=== PATIENT | male | born 1985 | race Caucasian/White ===

== ENCOUNTER → 2019-01-09 | Outpatient (CLI) | payer BC ==
[~2019-01-09] MED LIST: ACET325T9 PO; CITA10TA4 PO; CYCL10TA2 PO; FLUT16SP NS; GABA600T7 PO; IBUP-1027 PO; IOHEXOL 180 MG/ML 10 ML VIAL. ONE; LISI1TAB5 PO; MONT10TA9 PO; NORT50CA PO; RANI150C PO; ROPI0.5T PO; methylPREDNISolone ACETATE 40 MG/ML VIAL. ONE; methylPREDNISolone ACETATE 80 MG/ML VIAL. ONE
--- NOTE | 2019-01-10 03:36 | PAIN ---
DATE OF SERVICE: 01/09/2019 INITIAL CONSULTATION FOR PAIN CLINIC CHIEF COMPLAINT: Neck and right upper extremity pain. HISTORY OF PRESENT ILLNESS: This is a 33-year-old male who presents with history of pain in the neck and right upper extremity and shoulder for about 6 weeks, since about 11/26/2018. The patient reports it is in the base of the neck and shoulder, not a result of any specific injury or action that he is aware of. It just comes up over time, getting worse with repetitive motions, any lifting or motion of the right upper extremity, as becoming significant weakness with fine motor movements as well as lifting items, reaching above his head on his right side. Also looking over his right shoulder with his neck and extension of the cervical spine exacerbates the pain fairly significantly as well. The patient reports again no injury or action he is aware of. No pain on the left side. The patient reports pain is constant, sharp, stabbing, throbbing, changes during the day, radiating, worse with activity and cramping sensation as well. It awakens him from sleep at least 3-4 times a night. It does not affect his bowel or bladder control or his ability to walk. He has had chiropractic treatment within the last few weeks, which has been helpful, but only moderately, so not decreasing the pain significantly over time. The patient reports no loss of motor function, but significant fatigability of the right arm over the past 6 weeks or so. The patient did have an MRI scan of the cervical spine showing at C6-C7 circumferential disk bulge with a right paracentral disk herniation and extrusion, resulting in flattening of the ventral cord, with severe right lateral recess stenosis and impingement of the C7 nerve root, with [id number] right neural foraminal narrowing and mild left neural foraminal narrowing. The patient rates his disability from 0-10, 10 being the worst. It is a 7 with family and home responsibilities, recreation, social activity and self-care; 10 with occupation; 8 with sexual behavior and 9 with life-support activities. PAST MEDICAL HISTORY: The patient's past medical history is significant for hypertension and sleep apnea, also arthritis. PAST SURGICAL HISTORY: No previous surgeries. CURRENT MEDICATIONS: Include gabapentin, Tylenol, ibuprofen, fluticasone inhaler, lisinopril, montelukast, cyclobenzaprine, Zantac, Requip, nortriptyline and citalopram. ALLERGIES: THE PATIENT IS ALLERGIC TO PENICILLIN. FAMILY HISTORY: Significant for diabetes and hypertension. SOCIAL HISTORY: The patient does not drink alcohol, does not smoke and does not use any illegal, illicit or recreational drugs. 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 He is single, has no children, living at home. REVIEW OF SYSTEMS: The patient's review of systems is positive for all those items mentioned in the history of present illness. All systems reviewed are otherwise negative. It is complete, full and well documented on the patient's chart. PHYSICAL EXAMINATION: VITAL SIGNS: The patient's blood pressure is 146/103, pulse is 107, respirations 18 and temperature 98.2 degrees Fahrenheit. Height is 5 feet 11 inches, weight is 320 pounds. GENERAL: The patient is awake, alert, oriented, appropriate, very pleasant demeanor. HEENT EXAMINATION: Shows normocephalic, atraumatic. Extraocular movements are intact and symmetrical. Oral cavity, mucous membranes are moist and pink. Dentition is intact. NECK: Shows anterior throat supple, without palpable lymphadenopathy noted. Swallow reflex is symmetrical. CHEST: Shows normal on inspection. Breath sounds are clear to auscultation bilaterally. HEART: Shows S1, S2 clear. No murmurs auscultated. ABDOMEN: Obese, soft, nontender and nondistended. No palpable organomegaly is noted. No rebound or guarding is demonstrated. BACK: Shows spine grossly in the midline. Cervical paraspinous muscle shows symmetrical on inspection. On palpation, it shows some moderate tenderness in the inferior aspect of the cervical paraspinous muscles bilaterally, but only diffusely, without significant radiation. This is true more on the right side, in the superior medial trapezius as well, again without trigger points, without atrophy or hypertrophy and no radiation of pain. The patient shows good range of motion with significant pain with extension as well as right lateral rotation, but not left lateral rotation or forward flexion, which is decreasing the pain chin to chest. EXTREMITIES: The patient's upper extremities show deep tendon reflexes at 2+ in the biceps and triceps tendons and are equal. Motor exam is approximately 4 on a scale of 5 with right granite polisher and 5/5 on the left. Shoulder shrug is strong and intact, without loss of strength on resistance, but with significant pain in the base of the neck and the right shoulder. This is true with abduction of the shoulder to 90 degrees as well. No loss of strength. The patient's peripheral pulses are 2+ radial distribution. No peripheral edema is noted. SKIN: Warm and dry, good turgor. No edema. No sores, rashes or bruising throughout. IMPRESSION: 1. This is a 33-year-old male with approximately 6-week history of increasing pain, base of the neck and right upper extremity in a radicular fashion. 2. MRI scan of cervical spine as noted. 3. Hypertension. 4. Sleep apnea. 5. Arthritis. PLAN: Options were discussed with the patient including conservative medical management, physical therapy and interventional techniques. He would like to pursue intervention techniques. We discussed the cervical epidural steroid injection using description as well as anatomical models to describe the procedure. Risks were then discussed including, but not limited to bleeding, infection, possibility of epidural hematoma, subsequent neurological compromise, dural puncture, headaches, spinal cord and/or nerve damage, side effects of steroid medication and poor results regarding pain control. The patient understands and wishes to proceed. The patient will return to clinic in approximately 2 weeks for followup. He was counselled on his return appointment, activity levels and side effects to be aware of. DIAGNOSES: Cervical radiculopathy with cervical degenerative disk disease and cervical herniated disk. PROCEDURE: Cervical epidural steroid injection in translaminar approach C6-C7 level using C-arm fluoroscopic guidance under sterile prep and drape using local anesthetic. MEDICATION INJECTED: A total of 120 mg of Depo-Medrol plus 5 mL preservative-free normal saline and 2 mL of contrast. CONDITION AT DISCHARGE: Stable. The patient tolerated the procedure well, had no complications. TYSON VALDES MD DR: DARIUS/adilene JOB#: [id number] / [id number]
== END | disposition home or self-care (01) ==
LOC: PNCL 10:40
PROVIDERS: ATTEND Anesthesiology
DX: M50.123 Cervical disc disorder at C6-C7 level with radiculopathy (principal); I10 Essential (primary) hypertension; G47.30 Sleep apnea, unspecified; M19.90 Unspecified osteoarthritis, unspecified site; Z79.899 Other long term (current) drug therapy; Z88.0 Allergy status to penicillin; Z83.3 Family history of diabetes mellitus; Z82.49 Family history of ischemic heart disease and other diseases of the circulatory system
CPT/HCPCS: 62321; J1030; J1040; Q9965

== ENCOUNTER → 2019-01-23 | Outpatient (CLI) | payer BC ==
--- NOTE | 2019-01-24 04:56 | PAIN ---
DATE OF SERVICE: 01/23/2019 DIAGNOSES: Cervical radiculopathy with cervical degenerative disk disease and cervical herniated disk. HISTORY OF PRESENT ILLNESS: The patient is a 33-year-old male who returns for followup status post cervical epidural steroid injection x 1. The patient about 50% improvement until he was working a little more than normal in the last week or so. The pain began to return in the base of the neck, right shoulder and upper extremity with radiating pain into the posterior deltoid, posterior scapula, triceps region as well as the posterior forearm as well as the anterior deltoid and bicep. The patient reports otherwise he is doing fairly well. He has increased his activity with greater ease and comfort, doing work activities with greater ease, still some significant pain in the base of the neck and right posterior shoulder as well as the arm. It has been returning again after some increased activity while working. The patient reports it is 10 on a scale of 10 at its worst, 8 on average, 4 at its least over the past week and is 8 today. The patient reports sharp, tight, shooting, burning, sometimes severe, on and off in intensity. The patient reports generally it does not awaken him from sleep at night, but it has been over the last few days about every 4 hours. He can usually reposition and get back to sleep. The patient reports "I overdid it" last week causing the increased pain. No new motor or sensory deficits. The patient reports no new other changes. PHYSICAL EXAMINATION: VITAL SIGNS: Blood pressure 147/96, pulse 83, respirations 18, temperature 98.2 degrees Fahrenheit, height is 5 feet 11 inches, weight is 317 pounds. GENERAL: The patient is awake, alert, oriented, appropriate, very pleasant demeanor. HEENT: Head is normocephalic, atraumatic. Extraocular movements are intact and symmetrical. Oral cavity, mucous membranes are moist and pink. Dentition intact. NECK: Shows anterior throat supple without palpable lymphadenopathy noted. Swallow reflex is symmetrical. CHEST: Shows normal on inspection. Breath sounds clear to auscultation bilaterally. HEART: Shows S1, S2 clear. No murmurs auscultated. ABDOMEN: Soft, nontender, nondistended. No palpable organomegaly is noted. No rebound or guarding demonstrated. BACK: Shows spine grossly in the midline, normal-appearing cervical lordotic curvature and thoracic kyphotic curvature. Cervical paraspinous muscle shows symmetrical on inspection, on palpation shows some moderate tenderness diffusely bilaterally, but only diffusely without significant radiation. The patient has good rotational motion of cervical spine with some slight guarding with far right lateral rotation and extension, but not forward flexion or left lateral rotation. EXTREMITIES: The patient's upper extremities show deep tendon reflexes 2+ in the biceps and triceps tendons. Motor exam is approximately 4 on a scale of 5 with right courtesy car driver and 5/5 on the left. Peripheral pulses are 2+ in radial distribution. No peripheral edema is noted bilaterally. Options were discussed with the patient. The patient's old chart was reviewed as was his current medication regimen updated. Current review of systems updated today as well. We will proceed with a second in the series of cervical epidural steroid injection today with fluoroscopic guidance. Risks were again discussed including, but not limited to bleeding, infection, possibility of epidural hematoma and subsequent neurological compromise, dural puncture, headaches, spinal cord and/or nerve damage, side effects of steroid medication and poor results regarding pain control. The patient understands and wished to proceed. The patient to return to clinic in approximately 2 weeks for followup, was counseled as to return appointment, activity level and side effects to be aware of. DIAGNOSIS: Cervical radiculopathy with cervical degenerative disk disease and cervical herniated disk. PROCEDURE: Cervical epidural steroid injection, translaminar approach at C6-C7 level using C-arm fluoroscopic guidance under sterile prep and drape using local anesthetic. MEDICATION INJECTED: A total of 120 mg Depo-Medrol plus 5 mL of preservative-free normal saline and 2 mL of Isovue for contrast. CONDITION AT DISCHARGE: Stable. The patient tolerated the procedure well, had no complications. TYSON VALDES MD DR: DARIUS/adilene JOB#: [id number] / [id number]
== END | disposition home or self-care (01) ==
LOC: PNCL 10:31
PROVIDERS: ATTEND Anesthesiology
DX: M50.123 Cervical disc disorder at C6-C7 level with radiculopathy (principal)
CPT/HCPCS: 62321; J1030; J1040; Q9965

== ENCOUNTER → 2019-02-06 | Outpatient (CLI) | payer BC ==
--- NOTE | 2019-02-07 01:07 | PAIN ---
DATE OF SERVICE: 02/06/2019 PROGRESS NOTE FOR PAIN CLINIC DIAGNOSIS: Cervical radiculopathy with cervical degenerative disk disease and cervical herniated disk. HISTORY OF PRESENT ILLNESS: The patient is a 33-year-old male who returns for followup status post cervical epidural steroid injection x 2. The patient reports about 50% improvement initially for the first week and then the pain is returning, now only about 10% improvement in the neck and primarily in the right upper extremity. The patient reports it is an 8 on a scale of 10 at all times, average, worst and the least and is an 8 today. 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 The patient reports no new motor or sensory deficits, no new bowel or bladder incontinence or other complaints. PHYSICAL EXAMINATION: VITAL SIGNS: Today, the patient's blood pressure is 145/106, pulse 103, respirations are 18, temperature is 98.0 degrees Fahrenheit. Height is 5 feet 11 inches, weight is 312 pounds. GENERAL: The patient is awake, alert, oriented, appropriate, very pleasant demeanor. HEENT: Head is normocephalic, atraumatic. Extraocular movements are intact and symmetrical. Oral cavity: Mucous membranes moist and pink. Dentition is intact. NECK: Shows anterior throat supple without palpable lymphadenopathy noted. Swallow reflex symmetrical. CHEST: Shows normal on inspection. Breath sounds clear to auscultation bilaterally. HEART: Shows S1, S2 clear. No murmurs auscultated. ABDOMEN: Soft, obese, nontender, nondistended. No palpable organomegaly is noted. No rebound or guarding demonstrated. BACK: Shows spine grossly in the midline. Cervical paraspinous muscle shows symmetrical on inspection, on palpation shows some mild to moderate tenderness in the inferior aspect of the right greater than left cervical paraspinous musculature and superior medial to lateral trapezius on the right side as well. No specific trigger points are noted, but very firm and tender musculature bilaterally. The patient has good rotational motion of cervical spine, both laterally greater than 45 degrees right and left as well as extension and full forward flexion without significant pain reported. EXTREMITIES: The patient's upper extremities show deep tendon reflexes at 2+ in the biceps, triceps tendons. Motor exam is strong with 4/5 rum processing operator strength on the right and 5/5 on the left. Peripheral pulses are 2+ radial bilaterally. No peripheral edema is noted. Options were discussed with the patient. The patient's old chart was reviewed as his current medication regimen updated and current review of systems updated today as well. We will proceed with a third in the series of cervical epidural steroid injection today with fluoroscopic guidance. Risks were again discussed including, but not limited to bleeding, infection, possibility of epidural hematoma, subsequent neurological compromise, dural puncture, headaches, spinal cord and/or nerve damage, side effects of steroid medication and poor results regarding pain control. The patient understands and wished to proceed. The patient will return to clinic in approximately 2 weeks for followup. She was counseled as to return appointment, activity level and side effects to be aware of. DIAGNOSIS: Cervical radiculopathy with cervical degenerative disk disease and cervical herniated disk. PROCEDURE: Cervical epidural steroid injection, translaminar approach at C6-C7 level using C-arm fluoroscopic guidance under sterile prep and drape using local anesthetic. MEDICATION INJECTED: A total of 120 mg Depo-Medrol plus 5 mL of preservative-free normal saline and 2 mL of Isovue for contrast. CONDITION AT DISCHARGE: Stable. The patient tolerated procedure well, had no complications. TYSON VALDES MD DR: DARIUS/nts JOB#: [id number] / [id number]
== END | disposition home or self-care (01) ==
LOC: PNCL 10:05
PROVIDERS: ATTEND Anesthesiology
DX: M50.123 Cervical disc disorder at C6-C7 level with radiculopathy (principal)
CPT/HCPCS: 62321; J1030; J1040; Q9965

== ENCOUNTER → 2019-03-23 | Outpatient (CLI) | payer BC ==
[~2019-03-23] MED LIST changes: -IOHEXOL 180 MG/ML 10 ML VIAL. ONE; +MONT10TA49 PO; -MONT10TA9 PO; +OXYC5CAP PO; +SUMA100T4 PO; +TRAM50TA PO; -methylPREDNISolone ACETATE 40 MG/ML VIAL. ONE; -methylPREDNISolone ACETATE 80 MG/ML VIAL. ONE
--- NOTE | 2019-03-23 16:02 | EKG ---
[facility] [address] [place] [address] Test Date: 2019-03-23 Test Time: 15:54:38 Pat Name: KATEY BUSTILLOS Department: Room: Gender: M Burner Hand: DANIEL : 1985 Requested By: LENNY LEVY Order Number: [id number] Reading MD: Kofi Rodriguez Measurements Intervals Golden Rate: 108 P: 39 MD: 134 QRS: 30 QRSD: 86 T: 6 QT: 306 QTc: 414 Interpretive Statements SINUS TACHYCARDIA NONSPECIFIC ST-T WAVE CHANGES. Electronically Signed On 03-27-2019 16:00:51 CDT by Kofi Rodriguez
[2019-03-23 16:18] LABS: BASO % 1 % (0-3); EOS # 0.1 x10^3/uL (0.0-0.7); EOS % 1 % (0-3); HEMATOCRIT 46.3 % (39.0-53.0); HEMOGLOBIN 16.3 g/dL (13.0-17.5); LYMPH % 22 % (24-48); MEAN CORPUSCULAR HEMOGLOBIN 32 pg (25-35); MEAN CORPUSCULAR HGB CONC 35 g/dL (31-37); MEAN CORPUSCULAR VOLUME 92 fL (79-100); MONO # 0.8 x10^3/uL (0.0-1.1); MONO % 9 % (0-9); NEUT # 6.3 x10^3uL (1.8-7.7); NEUT % 68 % (31-73); PLATELET COUNT 229 x10^3/uL (140-400); RED BLOOD COUNT 5.02 x10^6/uL (4.30-5.70); WHITE BLOOD COUNT 9.2 x10^3/uL (4.0-11.0)
[2019-03-23 16:40] LABS: ALBUMIN 3.8 g/dL (3.4-5.0); CALCIUM 10.1 mg/dL (8.5-10.1); CREATININE 1.1 mg/dL (0.7-1.3); GFR 76.2; POTASSIUM 3.9 mmol/L (3.5-5.1); TOTAL BILIRUBIN 0.3 mg/dL (0.2-1.0); TOTAL PROTEIN 7.5 g/dL (6.4-8.2)
== END | disposition home or self-care (01) ==
LOC: SURGPAT 13:28
PROVIDERS: ATTEND Neurological Surgery
DX: Z01.818 Encounter for other preprocedural examination (principal); M50.123 Cervical disc disorder at C6-C7 level with radiculopathy; I10 Essential (primary) hypertension; R00.0 Tachycardia, unspecified
CPT/HCPCS: 36415; 80053; 85025; 87641; 93005

== ENCOUNTER 2019-04-01 08:13 | Observation (INO) | payer BC ==
--- NOTE | 2019-03-31 16:09 | PREOP HP ---
DATE OF SERVICE: 04/01/2019 DATE OF SURGERY: 04/01/2019 Carmine Bose dictating for Dr. Pernell Levy. HISTORY OF PRESENT ILLNESS: The patient is 34 years old and has difficulty with right-sided neck pain that radiates into his right shoulder and arm. He says that his right arm feels weak. The problem began approximately 4 weeks ago when he bent over to put his shoes on. He rates his pain as 7/10. Looking up and working with his hands worsens his pain. He has been using a TENS unit all day as well as Tylenol and ibuprofen, which helps him some. He never has had any problem like this before. He has noticed no problems with unsteadiness. PAST MEDICAL HISTORY: Arthritis, headaches, hypertension. PAST SURGICAL HISTORY: [place] teeth extraction in 2013. FAMILY HISTORY: Alzheimer's disease, cancer, diabetes, heart disease, hypertension, migraine headaches and spine problems. 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 Drinks 2 alcoholic beverages per day. ALLERGIES: No known drug allergies. CURRENT MEDICATIONS: Cetirizine, citalopram, Flexeril, fluticasone furoate, hydrochlorothiazide, lisinopril, Singulair, ranitidine, ropinirole, sumatriptan, nortriptyline, oxycodone and tramadol. REVIEW OF SYSTEMS: A 12-point review of systems was obtained and is noncontributory except for that mentioned above. PHYSICAL EXAMINATION: NEUROSURGERY EXAMINATION: GENERAL APPEARANCE: Alert, pleasant, in no acute distress. HEENT: Normocephalic, atraumatic. SKIN: Warm and dry. MUSCULOSKELETAL: Cervical paraspinal muscle bulk is normal, cervical range of motion is restricted, normal range of motion of the upper extremities bilaterally. EXTREMITIES: No clubbing, cyanosis or edema. NEUROLOGIC: Alert and oriented x 3, normal recent and remote memory, strength 5/5 in bilateral upper and lower extremities, sensory was intact to light touch in the upper and lower extremities and were decreased in the dorsum of his right hand, right middle and ring fingers, reflexes were trace and symmetric in the upper and lower extremities bilaterally, normal gait. IMAGING: Reviewed. I reviewed a cervical MRI scan from 12/25/2018. On that study, there is a large right paracentral disk herniation and extrusion at C6-C7 resulting in severe right lateral recess stenosis with impingement on the right C7 nerve root and associated [id number] right foraminal narrowing. ASSESSMENT: 1. Cervical disk disorder at C6-C7 with radiculopathy. 2. Cervicalgia. PLAN: I will refer him for epidural steroid injections. He will follow up me when those are completed. If he has not improved with epidural steroid injections, I would recommend artificial disk surgery at C6-C7. I did discuss this with him. He understands. We will make the arrangements. PERNELL LEVY MD DR: CANDACE/adilene JOB#: [id number] / [id number]
[~2019-04-01] VITALS: Ht 177.8 cm; Wt 140.6 kg
[2019-04-01] VITALS (9 sets, daily range): BP systolic 107–126; BP diastolic 61–87
[~2019-04-01 08:13] MED LIST changes: +BACITRACIN 50,000 UNIT in IV NORMAL SALINE 1000ML BAG 1,000 ML IRR ONE; +BUPIVAC MPF-EPI 0.5%-1:200000 30 ML VIAL. ONE; +GELATIN SPONGE SIZE 12-7MM SPONGE. ONE; +THROMBIN TOPICAL 20,000 UNIT SPRAY.SYRN KIT TP ONE; +ceFAZolin SODIUM 3 GM in IV DEXTROSE 5% 100ML 100 ML IV PRN
[2019-04-01] MEDS ORDERED: IV RINGERS,LACTATED 1000ML 1,000 ML IV SCH ×2 (08:45→14:45)
[2019-04-01] MEDS ORDERED: ONDANSETRON PF 4 MG/2 ML VIAL. ONE (09:35)
[2019-04-01] MEDS ORDERED: LIDOCAINE 2% PF 5 ML VIAL. ONE (09:35)
[2019-04-01] MEDS ORDERED: PROPOFOL 20 ML IV ONE (09:35)
[2019-04-01] MEDS ORDERED: DEXAMETHASONE SOD PHOS 20 MG/5 ML VIAL. ONE (09:35)
[2019-04-01] MEDS ORDERED: ePHEDrine PF IN SALINE 50 MG/10 ML SYRINGE. IV ONE (09:36)
[2019-04-01] MEDS ORDERED: PHENYLEPHRINE in 0.9% NACL PF 1 MG/10 ML SYRINGE. IV ONE (09:36)
[2019-04-01] MEDS ORDERED: fentaNYL PF VIAL 100 MCG/2 ML VIAL ONE (09:36)
[2019-04-01] MEDS ORDERED: SUCCINYLCHOLINE 200 MG/10 ML VIAL. ONE (09:38)
[2019-04-01] MEDS ORDERED: ROCURONIUM 50 MG/5 ML VIAL. ONE (09:39)
[2019-04-01] MEDS ORDERED: PROPOFOL 50 ML IV ONE ×3 (09:40→12:28)
[2019-04-01] MEDS ORDERED: REMIFENTANIL 2 MG VIAL. IV ONE (09:40)
[2019-04-01] MEDS ORDERED: MIDAZOLAM HCL/PF 2 MG/2 ML VIAL. ONE (10:45)
[2019-04-01] MEDS ORDERED: DESFLURANE > 120 MINUTES IH ONE (12:36)
[2019-04-01] MEDS ORDERED: PHENYLEPHRINE 10 MG/ML VIAL. ONE (13:00)
[2019-04-01] MEDS ORDERED: REMIFENTANIL 1 MG VIAL. IV ONE (13:36)
[2019-04-01] MEDS ORDERED: LIDOCAINE 1% PF 2 ML VIAL. ID PRN (14:45)
[2019-04-01] MEDS ORDERED: PROCHLORPERAZINE 10 MG/2 ML VIAL. IV PRN (14:45)
[2019-04-01] MEDS ORDERED: ONDANSETRON PF 4 MG/2 ML VIAL. IV PRN ×2 (14:45→16:00)
[2019-04-01] MEDS ORDERED: fentaNYL PF VIAL 100 MCG/2 ML VIAL IV PRN (14:45)
[2019-04-01] MEDS ORDERED: HYDROmorphone 2 MG/ML VIAL IV PRN (14:45)
[2019-04-01] MEDS: fentaNYL PF VIAL 100 MCG/2 ML VIAL IV PRN ×4 (15:14→21:54)
[2019-04-01] MEDS: MORPHINE SULFATE 2 MG/ML VIAL. IV PRN ×2 (15:34→15:52)
[2019-04-01] MEDS ORDERED: POTASSIUM CL 20MEQ D5-0.45NACL 1,000 ML IV SCH (15:53)
[2019-04-01] MEDS ORDERED: MAGNESIUM HYDROXIDE 2,400 MG/30 ML ORAL.SUSP. PO PRN (16:00)
[2019-04-01] MEDS ORDERED: NALOXONE 0.4 MG/ML VIAL. IV PRN (16:00)
[2019-04-01] MEDS ORDERED: ACETAMINOPHEN 325 MG TABLET. PO PRN ×2 (16:00)
[2019-04-01] MEDS ORDERED: CALCIUM CARBONATE 500 MG TAB.CHEW PO PRN (16:00)
[2019-04-01] MEDS ORDERED: diphenhydrAMINE HCL 25 MG CAPSULE PO PRN (16:00)
[2019-04-01] MEDS ORDERED: MAG HYDROX/ALUMINUM HYD/SIMETH 30 ML ORAL.SUSP PO PRN (16:00)
[2019-04-01] MEDS ORDERED: ZOLPIDEM 5 MG TABLET. PO PRN (16:00)
[2019-04-01] MEDS ORDERED: 0.9 % SODIUM CHLORIDE 10 ML DISP.SYRIN. IV PRN (16:00)
--- NOTE | 2019-04-01 16:30 | NUR ---
Arrived to unit by bed from PACU. Alert and oriented x's 4. No c/o at this time. Anterior neck dressing d/i with soft collar. Soreness shoulders and has ice pack. Radial pulses + bilaterally and warm touch. IVF's intact and infusing. YESSENIA's and ADRIANA's on bilaterally. Taking po fluids without difficulty. Oriented to room and controls. Side rails up x's 2 with call light in reach. Family at bedside. Cont. monitor.
[2019-04-01] MEDS: oxyCODONE IR 5 MG TABLET PO PRN (18:01)
[2019-04-01] MEDS: CYCLOBENZAPRINE 10 MG TABLET. PO PRN (18:02)
--- NOTE | 2019-04-01 18:37 | NUR ---
Walked around the unit with steady gait and is up in chair watching tv. Cont. monitor.
[2019-04-01] MEDS: ceFAZolin SODIUM IV Push 1 GM VIAL. IVP SCH (19:45)
[2019-04-01] MEDS: FAMOTIDINE 20 MG TABLET. PO SCH (20:50)
[2019-04-01] MEDS: DOCUSATE SODIUM 100 MG CAPSULE. PO SCH (20:50)
[2019-04-01] MEDS: traMADol 50 MG TABLET PO PRN (20:51)
[2019-04-01] MEDS ORDERED: MONTELUKAST SODIUM 10 MG TABLET. PO SCH (21:00)
[2019-04-01] MEDS ORDERED: NORTRIPTYLINE 25 MG CAPSULE PO SCH (21:00)
[2019-04-01] MEDS ORDERED: rOPINIRole 1 MG TABLET. PO SCH (21:00)
[2019-04-01] MEDS ORDERED: CITALOPRAM 20 MG TABLET. PO SCH (21:00)
[2019-04-01] MEDS ORDERED: ceFAZolin SODIUM 1 GM in IV DEXTROSE 5% 50 ML IV SCH (22:00)
--- NOTE | 2019-04-01 22:00 | NUR ---
C/o neck pain (front and back) and sore throat. Has rec'd Fentanyl x2. Wearing Cpap.
[2019-04-02] MEDS: fentaNYL PF VIAL 100 MCG/2 ML VIAL IV PRN (02:41)
[2019-04-02 02:47] VITALS: BP 141/94
[2019-04-02] MEDS: ceFAZolin SODIUM IV Push 1 GM VIAL. IVP SCH ×2 (04:02→11:26)
[2019-04-02 06:09] VITALS: BP 108/75
[2019-04-02] MEDS: DOCUSATE SODIUM 100 MG CAPSULE. PO SCH (08:07)
[2019-04-02] MEDS: FAMOTIDINE 20 MG TABLET. PO SCH (08:07)
[2019-04-02] MEDS: oxyCODONE IR 5 MG TABLET PO PRN (08:09)
[2019-04-02] MEDS: CYCLOBENZAPRINE 10 MG TABLET. PO PRN (08:12)
[2019-04-02] MEDS ORDERED: FLUTICASONE 50MCG/NASAL SPRAY 16GM BOTTLE. NS SCH (09:00)
[2019-04-02] MEDS ORDERED: LISINOPRIL 20 MG TABLET PO SCH (09:00)
[2019-04-02] MEDS ORDERED: DOCU-109 PO (10:40)
[2019-04-02] MEDS ORDERED: HYDR-3164 PO (10:40)
--- NOTE | 2019-04-02 10:42 | DISCH ---
DISCHARGE INSTRUCTIONS Condition on Discharge Condition on Discharge: Stable Activity After Discharge Activity Instructions for Disc: Activity as tolerated, Avoid exertion, Prog ressive ambulation Bathing Instructions: Shower-keep dressing dry Lifting Instructions after Dis: No heavy lifting, No pulling or pushing, Do not lift >10 pounds Exercise Instruction after Dis: Progress as tolerated Driving Instructions after Dis: Do not drive Diet after Discharge Additional Diet Restrictions: resume home diet, soft Wound Incision Care Wound/Incision Care: Ice to area for comfort, Change dressing, Reinforce dressing PRN Other wound/incision instructi: may remove dressing in 48 hours if dry then dot shower, no soaking Wound Care Equipment: Dressings Contacting the DRTriny after DC Call your doctor for: Concerns you may have Follow-Up Follow Up With: Dr Levy's nurse in 10-14 days [phone] Treatment/Equipment after DC Adaptive Equipment Issued: None LENNY LEVY MD Apr 02, 2019 10:41
[2019-04-02 11:16] VITALS: BP 129/93
[2019-04-02] MEDS: traMADol 50 MG TABLET PO PRN (11:23)
--- NOTE | 2019-04-02 12:40 | NUR ---
Patient left the building around 1235 with his family. Discharge education was completed by this nurse, PT, and Dr Dickson's PRIOR AUTHORIZATION NURSE Indu. No concerns noted upon discharge. Dressing changed to right side of the patients neck- incision had a scant amount of drainage but is healing appropriately with no concerns noted at this time. IV discontinued without any complications. Scripts given to patient for norco and flexeril. Patient left with all of his belongings.
--- NOTE | 2019-04-06 16:05 | PATHOLOGY ---
[facility] Accession Number: [id number] . 01 Material submitted: . vertebral column - CERVICAL DISC . 01 Clinical history: . Cervical herniated disc with radiculopathy. . 02 Diagnosis: Segments of fibrocartilaginous tissue and bone, cervical disc: - Degenerative changes of fibrocartilaginous tissue. LBQ/04/03/2019 . 02 Comment: There is no evidence of an acute inflammatory process or malignancy. (JPM/db; 04/03/2019) . 02 Electronically signed: . Demarcus Waterman MD, Pathologist NPI- [id number] . 01 Gross description: . Received in formalin labeled "Michelet, Jesús, cervical disc" is a 3.5 x 3.0 x 0.6 cm aggregate of lomeli-white rubbery tissue and scant gritty bone fragments. Record Press Tender tissue is submitted in cassette A1 following decalcification. [place] [place] SYC/SYC . 02 Pathologist provided ICD-10: M50.30 . 02 CPT . 043829, [id number] Specimen Comment: A courtesy copy of this report has been sent to Specimen Comment: [phone], . Specimen Comment: Report sent to / DR ZEPEDA Specimen Comment: A duplicate report has been generated due to demographic updates. Performed at: 01 [facility] [address], [place] [id number] MD Robin Melendrez MD Phone: [phone] Performed at: 02 [facility] [address] [place], [place] [id number] MD Demarcus Waterman MD Phone: [phone]
--- NOTE | 2019-04-06 17:18 | OP ---
DATE OF SURGERY: 04/01/2019 PREOPERATIVE DIAGNOSES: Herniated cervical disk, C6-C7, central and right-sided with severe right cervical radiculopathy. POSTOPERATIVE DIAGNOSES: Herniated cervical disk, C6-C7, central and right-sided with severe right cervical radiculopathy. OPERATION PERFORMED: Anterior cervical microdiskectomy C6-C7, anterior cervical interbody fusion, C6-C7 with allograft and autograft bone, anterior cervical plate C6-C7. The operation was done with EMG monitoring, fluoroscopy, microscopic dissection. HATCHERY EMPLOYEE: Faye Boss, assisted with the surgery. She assisted with the exposure, the diskectomy, the interbody fusion and closure. OPERATIVE INDICATIONS: The patient is a pleasant 34-year-old man who developed severe intractable neck and right arm pain, which failed conservative measures and have the above-mentioned findings on imaging studies. I recommended disk replacement surgery for the C6-C7 disk. The patient understood the surgery and the risks involved, the technique of the surgery and wished to go ahead. He understood that should there be any technical difficulties because of his body habitus, which limited visualization that the operation may be converted to an anterior cervical diskectomy and fusion. I did speak with him in detail about the risks of the operation and outlined the soft tissue structures of the neck and sequelae of injury to each. He understood and wished to go ahead. DESCRIPTION OF PROCEDURE: Following general endotracheal anesthesia, the patient was positioned supine on the operating room table. The neck was in a neutral position. The anterior cervical region was prepped and draped in standard fashion. YESSENIA hose and AV impulse boots were applied for DVT prophylaxis. The microscope was draped. Fluoroscopy was draped and brought into the field. Monitoring was established, which included EMG monitoring, motor evoked potentials, somatosensory evoked potentials, NIMS monitoring. We also used fluoroscopy and microscopy for the surgery. Images taken for the initiation of the surgery revealed that we were able to see C6 fairly well, but the C6-C7 disk space was somewhat visible, but I was optimistic that we could make an adequate approach and visualize well and have to place an artificial disk. I made a skin incision and dissected down through skin and subcutaneous tissue, sharply decided to divide the platysma and dissected around the medial aspect of the sternocleidomastoid and carotid artery sheath down the anterior cervical vertebral body, reflecting the trachea and esophagus contralaterally. I placed cervical retractors, wedged in the longus colli muscle, placed 14 mm pins in C6 and C7 and distracted the disk space. I incised the anterior annulus. I performed disk space very slightly. I incised the anterior annulus. I performed a diskectomy with pituitary rongeurs as well as the endplates scrapers. I drilled the posterior spurring, and I worked posteriorly and removed the herniated disk and passing through the annulus and the ligament, creating an excellent exposure. At this point, then I placed the sizers for artificial disk placement. Images, however, at this point were not adequate for me to comfortably place an artificial disk, especially visualizing the posterior edge of the construct. I therefore felt it most prudent to perform a standard operation. I obtained perfect hemostasis. I laid small pieces of Gelfoam in each lateral gutter, placed interbody fusion cage and placed the anterior plate with 14 mm screws. I did use a Metafused equipment throughout for this operation. Following this, then I locked the screws. I removed the retractor, irrigated copiously. Hemostasis was excellent. I did Valsalva. The patient's again hemostasis was excellent. I closed the wound with absorbable suture, the platysma as a separate layer. The skin was closed with 4-0 subcuticular stitch. The operation went very well and the patient awakened and taken to recovery room in excellent condition with improvement in his right arm pain. I was quite pleased with the surgery. LENNY LEVY MD DR: CANDACE/adilene JOB#: [id number] / [id number]
== END 2019-04-02 12:35 | disposition home or self-care (01) ==
LOC: SURG 08:13 → 4 SOUTHEST 16:10
PROVIDERS: ADMIT Neurological Surgery; ATTEND Neurological Surgery
DX: M50.123 Cervical disc disorder at C6-C7 level with radiculopathy (principal); R51 Headache; I10 Essential (primary) hypertension; M19.90 Unspecified osteoarthritis, unspecified site; Z82.0 Family history of epilepsy and other diseases of the nervous system; Z83.3 Family history of diabetes mellitus; Z82.49 Family history of ischemic heart disease and other diseases of the circulatory system
CPT/HCPCS: 20930; 22551; 22845; 76000; 96374; 96375; 96376; 97110; 97162; 97530; A7015; C1713; G0378; G0379; J0171; J0330; J0690; J1100; J2001; J2250; J2270; J2370; J2405; J2704; J3010; J3490; J7030; J7120; 88304; 88311